=== PATIENT | male | born 1990 | race Caucasian/White ===

== ENCOUNTER 2025-05-23 01:12 | Emergency (ER) | payer BC ==
[~2025-05-23] VITALS: Ht 175.3 cm; Wt 140.0 kg
[2025-05-23 01:14] VITALS: TEMP 37.2; O2SAT 95
[2025-05-23 04:22] VITALS: BP 118/76; PULSE 82; RESP 18; O2SAT 100
== END 2025-05-23 04:22 | disposition home or self-care (01) ==
LOC: ER 01:12
DX: F10.129 Alcohol abuse with intoxication, unspecified (principal); Y90.9 Presence of alcohol in blood, level not specified
CPT/HCPCS: 99283